=== PATIENT | female | born 2005 | race Caucasian/White ===

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

== ENCOUNTER 2025-04-02 10:04 | Emergency (ER) | payer BC ==
[~2025-04-02] VITALS: Ht 170.2 cm; Wt 104.3 kg
[~2025-04-02 10:04] MED LIST: CEFDINIR300 MG PO; DICLEGIS DR 101 EACH PO; ONDANSETRON ODT4 MG PO; ULTRAM 50MG50 MG PO
[2025-04-02] MEDS: ONDANSETRON HCL INJ 2MG/ML 2ML 2 MG/ML VIAL IV STA (11:36)
[2025-04-02] MEDS: SODIUM CHLORIDE 0.9% 1000ML 2,000 ML IV STA (11:39)
[2025-04-02] MEDS ORDERED: SODIUM CHLORIDE 0.9% 1000ML 1,000 ML ONE (11:39)
[2025-04-02 11:55] LABS: BASOPHILS % 0.1 % (0.0-1.0); EOSINOPHILS % 0.0 % (0.0-6.0); LYMPHOCYTES % 6.5 % (18.0-39.1); MONOCYTES % 5.7 % (4.4-11.3); NEUTROPHILS % 87.4 % (38.7-80.0); RED CELL DISTRIBUTION WIDTH 12.3 % (11.7-14.4)
[2025-04-02 12:46] LABS: EST GLOMERULAR FILTRATION RATE 129.0 ML/MIN (>=60)
[2025-04-02 13:11] LABS: OPIATES SCREEN,URINE NEGATIVE (NEGATIVE)
[2025-04-02 13:12] LABS: AMPHETAMINES SCREEN,URINE NEGATIVE (NEGATIVE); CANNABINOIDS SCREEN,URINE POSITIVE (NEGATIVE); COCAINE SCREEN,URINE NEGATIVE (NEGATIVE); METHADONE SCREEN, URINE NEGATIVE (NEGATIVE)
[2025-04-02 14:35] LABS: HCG,QUANTITATIVE 265060.64 mIU/mL (0-10)
[2025-04-02] MEDS ORDERED: DICLEGIS DR 101 EACH PO (17:14)
[2025-04-02] MEDS ORDERED: ONDANSETRON ODT4 MG PO (17:14)
[2025-04-02] MEDS ORDERED: VITAMIN B-650 MG PO (17:14)
[2025-04-02] MEDS: METOCLOPRAMIDE HCL 10 MG/2ML VIAL IV STA (17:30)
[2025-04-02 17:34] VITALS: PULSE 82; RESP 16; TEMP 97.9
[2025-04-02 17:35] VITALS: BP 118/68; PULSE 82; RESP 16; TEMP 97.9; O2SAT 99
== END 2025-04-02 17:38 | disposition home or self-care (01) ==
LOC: ER 10:10
DX: O26.891 Other specified pregnancy related conditions, first trimester (principal); O21.0 Mild hyperemesis gravidarum; R10.13 Epigastric pain
CPT/HCPCS: 36415; 76801; 80053; 80307; 83690; 84702; 85025; 93976; 99284; J2405; J2765; J7030